=== PATIENT | male | born 1995 | race African-American/Black ===

== ENCOUNTER 2019-01-21 15:56 | Inpatient (IN) | payer BC, MEDICAID ==
[2019-01-21] VITALS (11 sets, daily range): BP systolic 97–131; BP diastolic 58–89
[~2019-01-21] VITALS: Ht 188 cm; Wt 74.4 kg
[2019-01-21] MEDS ORDERED: SODIUM CHLORIDE 0.9% 10ML VIAL ONE (16:03)
[2019-01-21] MEDS ORDERED: ETOMIDATE 2MG/ML 10ML VIAL IV ONE ×2 (16:03→16:30)
[2019-01-21] MEDS ORDERED: VECURONIUM BROMIDE 10 MG/VIAL IV ONE ×2 (16:03→16:30)
[2019-01-21] MEDS ORDERED: PROPOFOL 10MG/ML 100ML 100 ML IV ONE (16:30)
[2019-01-21 16:49] LABS: CLARITY URINE CLOUDY (CLEAR); COLOR URINE DARK YELLOW (YELLOW); KETONES URINE TRACE (NEGATIVE); LEUKOCYTE ESTERASE URINE TRACE (NEGATIVE); NITRITE URINE NEGATIVE (NEGATIVE); OCCULT BLOOD URINE NEGATIVE (NEGATIVE); PH URINE 5.5 (4.5-8.0); PROTEIN URINE TRACE (NEGATIVE); SPECIFIC GRAVITY URINE 1.032 (1.005-1.030)
[2019-01-21 16:50] LABS: CHLORIDE 110 mEq/L (98-107)
[2019-01-21 16:55] LABS: BASOPHILS % 0.6 % (0.0-2.0); EOSINOPHILS % 4.9 % (0.0-5.0); ETHANOL BLOOD 259 mg/dL; HEMATOCRIT. 38.7 % (42.0-52.0); LYMPHOCYTES % 34.4 % (20.0-50.0); MEAN CORPUSCULAR HEMOGLOBIN 29.7 pg (28.0-32.0); MEAN CORPUSCULAR VOLUME 88.8 fL (80.0-94.0); MEAN PLATELET VOLUME 8.1 fl (7.4-10.4); MONOCYTES % 7.1 % (2.0-8.0); PLATELET 232 x1000/uL (130-400); RED BLOOD CELL COUNT 4.36 mill/uL (4.7-6.1); RED CELL DISTRIBUTION WIDTH 13.7 % (11.6-14.6)
[2019-01-21 16:56] LABS: D-DIMER 0.46 mg/L FEU (<0.50); PARTIAL THROMBOPLASTIN TIME 25.4 sec (23.4-31.0); PROTHROMBIN TIME 10.7 sec (9.6-11.0)
[2019-01-21 17:11] LABS: CREATINE KINASE 1651 IU/L (39-308)
[2019-01-21 17:23] LABS: *AMPHETAMINES SCREEN URINE PRESUMTIVE POSITIVE (NEGATIVE); *BARBITURATES SCREEN URINE NEGATIVE (NEGATIVE); *BENZODIAZEPINES SCREEN URINE NEGATIVE (NEGATIVE); *COCAINE SCREEN URINE NEGATIVE (NEGATIVE); METHADONE URINE SCREEN NEGATIVE (NEGATIVE)
[2019-01-21 17:24] LABS: CANNABINOID URINE SCREEN PRESUMTIVE POSITIVE (NEGATIVE); OPIATES URINE SCREEN NEGATIVE (NEGATIVE); PHENCYCLIDINE URINE SCREEN NEGATIVE (NEGATIVE)
[2019-01-21 17:28] LABS: BG BASE EXCESS -3.6 mmol/L (-2.0-2.0); BG CARBOXYHEMOGLOBIN 1.3 % (0.5-1.5); BG DEOXYHEMOGLOBIN 0.4 % (0.0-5.0); BG FRACTION INSPIRED OXYGEN 100; BG HCO3 ACT 22.7 mmol/L (22.0-26.0); BG METHEMOGLOBIN 0.5 % (0.0-1.5); BG OXYGEN SATURATION 99.6 % (92.0-98.5); BG OXYHEMOGLOBIN 97.8 % (94.0-97.0); BG PCO2 45.9 mmHg (35.0-45.0); BG PH 7.313 (7.350-7.450); BG SAMPLE SITE RIGHT RADIAL; BG TIDAL VOLUME(mL) 500 mL; BG TOTAL HEMOGLOBIN 13.5 g/dL (12.0-18.0); BG VENT MODE VENT - A/C; BG VENT RATE 14 set
[2019-01-21] MEDS ORDERED: ONDANSETRON HCL 4MG/2ML INJ IV PRN (21:30)
[2019-01-21] MEDS ORDERED: ACETAMINOPHEN 325MG TABLET PO PRN (21:30)
[2019-01-21] MEDS: PROPOFOL 10MG/ML 100ML 100 ML IV PRN (21:31)
[2019-01-21] MEDS: FENTANYL CITRATE/PF 500 MCG in SODIUM CHLORIDE 0.9% 40 ML IV PRN (21:47)
[2019-01-21] MEDS: DEXT 5%/0.45% NACL KCL 10MEQ/L 1,000 ML IV SCH (21:59)
[2019-01-21] MEDS: ENOXAPARIN 40MG/0.4ML SYR SUBCUT SCH (21:59)
[2019-01-21] MEDS ORDERED: LEVOFLOXACIN 500MG PREMIX 100 ML IV SCH (23:00)
[2019-01-22] VITALS (49 sets, daily range): BP systolic 115–168; BP diastolic 65–118
[2019-01-22] MEDS: IPRATROPIUM/ALBUTEROL 0.5-3(2.5)MG/3ML NEB HHN SCH ×4 (01:51→20:11)
[2019-01-22] MEDS: PROPOFOL 10MG/ML 100ML 100 ML IV PRN (01:54)
[2019-01-22] MEDS: FENTANYL CITRATE/PF 500 MCG in SODIUM CHLORIDE 0.9% 40 ML IV PRN ×4 (04:28→20:05)
[2019-01-22 05:15] LABS: BASOPHILS % 0.2 % (0.0-2.0); EOSINOPHILS % 5.9 % (0.0-5.0); HEMATOCRIT. 40.1 % (42.0-52.0); HEMOGLOBIN. 13.2 g/dL (14.0-18.0); LYMPHOCYTES % 34.2 % (20.0-50.0); MEAN CORPUSCULAR HEMOGLOBIN 29.5 pg (28.0-32.0); MEAN CORPUSCULAR VOLUME 89.1 fL (80.0-94.0); MEAN PLATELET VOLUME 8.3 fl (7.4-10.4); MONOCYTES % 6.1 % (2.0-8.0); NEUTROPHILS % 53.6 % (40.0-76.0); PLATELET 208 x1000/uL (130-400); RED BLOOD CELL COUNT 4.49 mill/uL (4.7-6.1); RED CELL DISTRIBUTION WIDTH 13.9 % (11.6-14.6)
[2019-01-22 05:18] LABS: CHLORIDE 111 mEq/L (98-107)
[2019-01-22] MEDS: MIDAZOLAM HCL 100 MG in DEXT 5% WATER 80 ML IV PRN ×2 (05:54→14:34)
[2019-01-22 07:05] LABS: BG BASE EXCESS -1.6 mmol/L (-2.0-2.0); BG CARBOXYHEMOGLOBIN 0.5 % (0.5-1.5); BG HCO3 ACT 25.7 mmol/L (22.0-26.0); BG METHEMOGLOBIN 0.1 % (0.0-1.5); BG OXYGEN SATURATION 88.9 % (92.0-98.5); BG OXYHEMOGLOBIN 88.4 % (94.0-97.0); BG PCO2 54.1 mmHg (35.0-45.0); BG PH 7.294 (7.350-7.450); BG PO2 62.6 mmHg (75.0-100.0); BG SAMPLE SITE RIGHT BRACHIAL; BG TIDAL VOLUME(mL) 500 mL; BG TOTAL HEMOGLOBIN 13.8 g/dL (12.0-18.0); BG VENT MODE VENT - A/C; BG VENT RATE 16 set
[2019-01-22] MEDS: HALOPERIDOL LACTATE 5MG/ML VIAL IM PRN (07:14)
[2019-01-22 07:59] LABS: BG BASE EXCESS -1.5 mmol/L (-2.0-2.0); BG CARBOXYHEMOGLOBIN 0.2 % (0.5-1.5); BG DEOXYHEMOGLOBIN 6.5 % (0.0-5.0); BG FRACTION INSPIRED OXYGEN 40; BG HCO3 ACT 25.1 mmol/L (22.0-26.0); BG METHEMOGLOBIN 0.2 % (0.0-1.5); BG OXYGEN SATURATION 93.5 % (92.0-98.5); BG OXYHEMOGLOBIN 93.1 % (94.0-97.0); BG PCO2 50.1 mmHg (35.0-45.0); BG PH 7.318 (7.350-7.450); BG PO2 74.7 mmHg (75.0-100.0); BG SAMPLE SITE RIGHT RADIAL; BG TIDAL VOLUME(mL) 500 mL; BG TOTAL HEMOGLOBIN 13.6 g/dL (12.0-18.0); BG VENT MODE VENT - A/C; BG VENT RATE 16 set
[2019-01-22] MEDS ORDERED: IPRATROPIUM/ALBUTEROL 0.5-3(2.5)MG/3ML NEB HHN PRN (10:30)
[2019-01-22] MEDS: FAMOTIDINE 20MG/2ML VIAL IV SCH ×2 (11:01→20:59)
[2019-01-22] MEDS: QUETIAPINE FUMARATE 25MG TABLET PO SCH ×2 (11:01→20:59)
[2019-01-22] MEDS: DEXT 5%/0.45% NACL KCL 10MEQ/L 1,000 ML IV SCH (11:01)
[2019-01-22] MEDS: LORAZEPAM 2MG/ML CPJ IV PRN (11:01)
[2019-01-22] MEDS: PIPERACILLIN/TAZOBACTAM 3.375 G in DEXT 5% WATER 100 ML IV SCH ×2 (12:23→17:30)
[2019-01-22] MEDS ORDERED: FUROSEMIDE 40MG/4ML VIAL IVP NR (17:30)
[2019-01-22] MEDS: ENOXAPARIN 40MG/0.4ML SYR SUBCUT SCH (21:02)
[2019-01-23] VITALS (36 sets, daily range): BP systolic 109–161; BP diastolic 53–103
[2019-01-23] MEDS: MIDAZOLAM HCL 100 MG in DEXT 5% WATER 80 ML IV PRN ×2 (00:13→09:01)
[2019-01-23] MEDS: IPRATROPIUM/ALBUTEROL 0.5-3(2.5)MG/3ML NEB HHN SCH ×6 (00:25→20:31)
[2019-01-23] MEDS: PIPERACILLIN/TAZOBACTAM 3.375 G in DEXT 5% WATER 100 ML IV SCH ×4 (00:29→17:02)
[2019-01-23] MEDS: FENTANYL CITRATE/PF 1,000 MCG in SODIUM CHLORIDE 0.9% 80 ML IV PRN ×2 (02:02→09:29)
[2019-01-23] MEDS: DEXT 5%/0.45% NACL KCL 10MEQ/L 1,000 ML IV SCH ×2 (02:04→16:51)
[2019-01-23 05:50] LABS: BASOPHILS % 0.5 % (0.0-2.0); EOSINOPHILS % 6.5 % (0.0-5.0); HEMATOCRIT. 42.6 % (42.0-52.0); HEMOGLOBIN. 14.5 g/dL (14.0-18.0); LYMPHOCYTES % 32.6 % (20.0-50.0); MEAN CORPUSCULAR VOLUME 88.4 fL (80.0-94.0); MEAN PLATELET VOLUME 8.6 fl (7.4-10.4); MONOCYTES % 7.1 % (2.0-8.0); NEUTROPHILS % 53.3 % (40.0-76.0); PLATELET 196 x1000/uL (130-400); RED BLOOD CELL COUNT 4.82 mill/uL (4.7-6.1); RED CELL DISTRIBUTION WIDTH 13.7 % (11.6-14.6)
[2019-01-23 05:52] LABS: CHLORIDE 106 mEq/L (98-107)
[2019-01-23] MEDS: HALOPERIDOL LACTATE 5MG/ML VIAL IM PRN (07:25)
[2019-01-23 08:19] LABS: BG BASE EXCESS 0.8 mmol/L (-2.0-2.0); BG CARBOXYHEMOGLOBIN 1.1 % (0.5-1.5); BG DEOXYHEMOGLOBIN 3.8 % (0.0-5.0); BG FRACTION INSPIRED OXYGEN 40; BG METHEMOGLOBIN 0.3 % (0.0-1.5); BG OXYGEN SATURATION 96.1 % (92.0-98.5); BG OXYHEMOGLOBIN 94.8 % (94.0-97.0); BG PCO2 43.8 mmHg (35.0-45.0); BG PH 7.392 (7.350-7.450); BG PO2 80.8 mmHg (75.0-100.0); BG SAMPLE SITE RIGHT RADIAL; BG TIDAL VOLUME(mL) 500 mL; BG VENT MODE VENT - A/C; BG VENT RATE 18 set
[2019-01-23] MEDS: QUETIAPINE FUMARATE 25MG TABLET PO SCH ×2 (08:29→21:21)
[2019-01-23] MEDS: FAMOTIDINE 20MG/2ML VIAL IV SCH ×2 (08:29→21:21)
[2019-01-23 11:29] LABS: BG BASE EXCESS -0.4 mmol/L (-2.0-2.0); BG CARBOXYHEMOGLOBIN 0.2 % (0.5-1.5); BG DEOXYHEMOGLOBIN 1.5 % (0.0-5.0); BG FRACTION INSPIRED OXYGEN 40; BG HCO3 ACT 25.1 mmol/L (22.0-26.0); BG METHEMOGLOBIN 0.3 % (0.0-1.5); BG OXYGEN SATURATION 98.5 % (92.0-98.5); BG PCO2 44.3 mmHg (35.0-45.0); BG PH 7.371 (7.350-7.450); BG PO2 131.4 mmHg (75.0-100.0); BG PRESSURE SUPPORT 8; BG SAMPLE SITE RIGHT RADIAL; BG TOTAL HEMOGLOBIN 15.2 g/dL (12.0-18.0); BG VENT MODE VENT - CPAP; BG VENT RATE 11 set
[2019-01-23] MEDS: LORAZEPAM 2MG/ML CPJ IV PRN (12:39)
[2019-01-23] MEDS ORDERED: FUROSEMIDE 20MG/2ML VIAL IVP NR (13:00)
[2019-01-23] MEDS: ENOXAPARIN 40MG/0.4ML SYR SUBCUT SCH (21:21)
[2019-01-24] VITALS (16 sets, daily range): BP systolic 87–136; BP diastolic 49–77
[2019-01-24] MEDS: PIPERACILLIN/TAZOBACTAM 3.375 G in DEXT 5% WATER 100 ML IV SCH ×3 (00:13→11:15)
[2019-01-24] MEDS: IPRATROPIUM/ALBUTEROL 0.5-3(2.5)MG/3ML NEB HHN SCH ×4 (00:40→12:28)
[2019-01-24] MEDS: DEXT 5%/0.45% NACL KCL 10MEQ/L 1,000 ML IV SCH (03:50)
[2019-01-24] MEDS: FAMOTIDINE 20MG/2ML VIAL IV SCH (08:31)
[2019-01-24] MEDS: QUETIAPINE FUMARATE 25MG TABLET PO SCH (08:31)
== END 2019-01-24 16:30 | disposition left against medical advice (07) | DRG 871 ==
LOC: ER 15:56 → CVICU 18:48 → EDBD 18:48 → CMPBEDREQ 18:52 → ENRESERV 20:11
PROVIDERS: ADMIT Hospitalist; ATTEND Hospitalist
PROC: 5A1945Z Respiratory Ventilation, 24-96 Consecutive Hours (ICD-10-PCS; principal; 2019-01-21)
PROC: 0BH17EZ Insertion of Endotracheal Airway into Trachea, Via Natural or Artificial Opening (ICD-10-PCS; 2019-01-21)
PROC: 06HY33Z Insertion of Infusion Device into Lower Vein, Percutaneous Approach (ICD-10-PCS; 2019-01-21)
DX: A41.9 Sepsis, unspecified organism (principal); J96.00 Acute respiratory failure, unspecified whether with hypoxia or hypercapnia; G92 Toxic encephalopathy; J69.0 Pneumonitis due to inhalation of food and vomit; N17.9 Acute kidney failure, unspecified; M62.82 Rhabdomyolysis; T43.621A Poisoning by amphetamines, accidental (unintentional), initial encounter; E87.6 Hypokalemia; Y90.8 Blood alcohol level of 240 mg/100 ml or more; Y92.89 Other specified places as the place of occurrence of the external cause; Z78.1 Physical restraint status
CPT/HCPCS: 36415; 36600; 71045; 80048; 80305; 80307; 80320; 80329; 81003; 82140; 82375; 82550; 82805; 82962; 83605; 83880; 84443; 84478; 84484; 85379; 87070; 92610; 93005; 93970; 94002; 94003; 94640; 96374; 99291; J1630; J1650; J1940; J1956; J2060; J2250; J2543; J2704; J3010; J3490; J7060; J7620; G0480

== ENCOUNTER 2019-01-24 19:45 | Emergency (ER) | payer BC, MEDICAID ==
[~2019-01-24] VITALS: Ht 180.3 cm; Wt 70.0 kg
[2019-01-24] MEDS ORDERED: ALBUTEROL (0.083%) 2.5MG/3ML NEB HHN STA (21:43)
[2019-01-24] MEDS ORDERED: ALBUTEROL (0.5%) 2.5MG/0.5ML NEB HHN ONE (23:00)
[2019-01-25 03:15] VITALS: BP 112/61
== END 2019-01-25 03:15 | disposition home or self-care (01) ==
LOC: ER 19:45
DX: R06.02 Shortness of breath (principal); J45.909 Unspecified asthma, uncomplicated; F32.9 Major depressive disorder, single episode, unspecified; F17.200 Nicotine dependence, unspecified, uncomplicated; F14.10 Cocaine abuse, uncomplicated; F11.10 Opioid abuse, uncomplicated; F12.10 Cannabis abuse, uncomplicated; Z98.890 Other specified postprocedural states
CPT/HCPCS: 71045; 94640; 99283; J7611; Z7610

== ENCOUNTER 2019-01-28 22:45 | Emergency (ER) | payer BC, MEDICAID ==
[~2019-01-28] VITALS: Ht 180.3 cm; Wt 75.0 kg
[2019-01-28 23:03] VITALS: BP 123/85
== END 2019-01-29 02:35 | disposition left against medical advice (07) ==
LOC: ER 22:45
DX: Z53.21 Procedure and treatment not carried out due to patient leaving prior to being seen by health care provider (principal); F41.9 Anxiety disorder, unspecified; F32.9 Major depressive disorder, single episode, unspecified; I10 Essential (primary) hypertension

== ENCOUNTER 2021-02-14 19:41 | Emergency (ER) | payer BC, MEDICAID ==
[~2021-02-14] VITALS: Ht 180.3 cm; Wt 83.0 kg
[2021-02-14] MEDS ORDERED: IBUP-2029 MT (20:50)
[2021-02-14] MEDS ORDERED: IBUPROFEN 600MG TABLET PO ONE (21:00)
[2021-02-14 21:29] VITALS: BP 137/72
== END 2021-02-14 21:50 | disposition home or self-care (01) ==
LOC: ER 19:46
DX: S90.822A Blister (nonthermal), left foot, initial encounter (principal); Y93.01 Activity, walking, marching and hiking; Y93.89 Activity, other specified; Y92.9 Unspecified place or not applicable; Z59.0 Homelessness
CPT/HCPCS: 99282

== ENCOUNTER 2021-03-09 20:11 | Emergency (ER) | payer OTHER, MEDICAID ==
[~2021-03-09] VITALS: Ht 177.8 cm; Wt 81.0 kg
[~2021-03-09 20:11] MED LIST: IBUP-2029 MT
[2021-03-09 23:22] LABS: BASOPHILS % 0.3 % (0.0-2.0); EOSINOPHILS % 5.8 % (0.0-5.0); HEMATOCRIT. 40.4 % (42.0-52.0); HEMOGLOBIN. 13.5 g/dL (14.0-18.0); LYMPHOCYTES % 31.2 % (20.0-50.0); MEAN CORPUSCULAR HEMOGLOBIN 29.3 pg (28.0-32.0); MEAN CORPUSCULAR VOLUME 87.6 fL (80.0-94.0); MEAN PLATELET VOLUME 7.8 fl (7.4-10.4); MONOCYTES % 5.4 % (2.0-8.0); NEUTROPHILS % 57.3 % (40.0-76.0); PLATELET 286 x1000/uL (130-400); RED BLOOD CELL COUNT 4.62 mill/uL (4.7-6.1); RED CELL DISTRIBUTION WIDTH 14.4 % (11.6-14.6)
[2021-03-09 23:27] LABS: CHLORIDE 106 mEq/L (98-107)
[2021-03-09 23:32] LABS: ETHANOL BLOOD < 10 mg/dL
[2021-03-10 04:08] LABS: CLARITY URINE CLEAR (CLEAR); COLOR URINE YELLOW (YELLOW); KETONES URINE NEGATIVE (NEGATIVE); LEUKOCYTE ESTERASE URINE NEGATIVE (NEGATIVE); NITRITE URINE NEGATIVE (NEGATIVE); OCCULT BLOOD URINE NEGATIVE (NEGATIVE); PH URINE 6.5 (4.5-8.0); PROTEIN URINE NEGATIVE (NEGATIVE); SPECIFIC GRAVITY URINE 1.006 (1.005-1.030); UROBILINOGEN URINE 0.2 E.U./dL (0.2-1.0)
[2021-03-10] MEDS ORDERED: NICOTINE 7MG PATCH TD ONE (04:15)
[2021-03-10] MEDS ORDERED: OLANZAPINE 10 MG/VIAL IM ONE (04:15)
[2021-03-10 04:35] LABS: *AMPHETAMINES SCREEN URINE PRESUMTIVE POSITIVE (NEGATIVE); *BARBITURATES SCREEN URINE NEGATIVE (NEGATIVE); *BENZODIAZEPINES SCREEN URINE PRESUMTIVE POSITIVE (NEGATIVE)
[2021-03-10 04:36] LABS: *COCAINE SCREEN URINE NEGATIVE (NEGATIVE); CANNABINOID URINE SCREEN PRESUMTIVE POSITIVE (NEGATIVE); METHADONE URINE SCREEN NEGATIVE (NEGATIVE); OPIATES URINE SCREEN NEGATIVE (NEGATIVE); PHENCYCLIDINE URINE SCREEN PRESUMTIVE POSITIVE (NEGATIVE)
[2021-03-10 13:58] VITALS: BP 94/58
== END 2021-03-10 14:02 | disposition home or self-care (01) ==
LOC: ER 20:11
DX: R45.851 Suicidal ideations (principal); F15.10 Other stimulant abuse, uncomplicated; Z20.822 Contact with and (suspected) exposure to COVID-19
CPT/HCPCS: 36415; 80053; 80305; 80307; 80320; 80329; 81003; 85025; 96372; 99285; C9803; J3490; U0003; U0005; Z7610; G0480

== ENCOUNTER 2024-01-05 10:35 | Emergency (ER) | payer MEDICAID ==
[~2024-01-05] VITALS: Ht 182.9 cm; Wt 73.0 kg
[2024-01-05 10:38] VITALS: BP 127/70; PULSE 70; RESP 14; TEMP 98.1; O2SAT 98
[2024-01-05 11:31] LABS: BASOPHILS % 0.5 % (0.0-2.0); EOSINOPHILS % 6.3 % (0.0-5.0); HEMOGLOBIN. 12.7 g/dL (14.0-18.0); LYMPHOCYTES % 34.9 % (20.0-50.0); MEAN CORPUSCULAR HEMOGLOBIN 28.9 pg (28.0-32.0); MEAN CORPUSCULAR HGB CONC 32.6 g/dL (31.0-37.0); MEAN CORPUSCULAR VOLUME 88.6 fL (80.0-94.0); MEAN PLATELET VOLUME 7.5 fl (7.4-10.4); MONOCYTES % 7.4 % (2.0-8.0); NEUTROPHILS % 50.9 % (40.0-76.0); PLATELET 379 x1000/uL (130-400); RED CELL DISTRIBUTION WIDTH 14.1 % (11.6-14.6); WHITE BLOOD COUNT 5.7 x1000/uL (4.5-11.0)
[2024-01-05 11:39] LABS: CARBON DIOXIDE 29 mEq/L (21-32); CHLORIDE 107 mEq/L (98-107); POTASSIUM 3.8 mEq/L (3.5-5.1); SODIUM 142 mEq/L (136-145)
[2024-01-05 11:40] LABS: CALCIUM 9.1 mg/dL (8.7-10.4)
[2024-01-05 11:44] LABS: CREATININE 0.9 mg/dL (0.6-1.3)
[2024-01-05 11:45] LABS: GLUCOSE 95 mg/dL (70-105); UREA NITROGEN BLOOD 12 mg/dL (9-23)
== END 2024-01-05 18:31 | disposition left against medical advice (07) ==
LOC: ER 10:35
DX: R53.1 Weakness (principal); F32.A Depression, unspecified; Z59.00 Homelessness unspecified
CPT/HCPCS: 36415; 71045; 80048; 85025; 99284

== ENCOUNTER 2024-01-05 22:50 | Emergency (ER) | payer MEDICAID ==
[~2024-01-05] VITALS: Ht 182.9 cm; Wt 80.0 kg
[2024-01-05 22:56] VITALS: O2SAT 98
[2024-01-05 23:29] VITALS: BP 128/88; PULSE 57; RESP 16; TEMP 98.2; O2SAT 98
[2024-01-06 03:27] LABS: BASOPHILS % 0.8 % (0.0-2.0); EOSINOPHILS % 7.3 % (0.0-5.0); HEMATOCRIT. 40.3 % (42.0-52.0); HEMOGLOBIN. 13.3 g/dL (14.0-18.0); LYMPHOCYTES % 53.2 % (20.0-50.0); MEAN CORPUSCULAR HEMOGLOBIN 29.2 pg (28.0-32.0); MEAN CORPUSCULAR HGB CONC 33.1 g/dL (31.0-37.0); MEAN CORPUSCULAR VOLUME 88.2 fL (80.0-94.0); MEAN PLATELET VOLUME 7.5 fl (7.4-10.4); MONOCYTES % 5.3 % (2.0-8.0); NEUTROPHILS % 33.4 % (40.0-76.0); PLATELET 436 x1000/uL (130-400); RED BLOOD CELL COUNT 4.57 mill/uL (4.7-6.1); RED CELL DISTRIBUTION WIDTH 14.5 % (11.6-14.6); WHITE BLOOD COUNT 7.1 x1000/uL (4.5-11.0)
[2024-01-06 03:29] LABS: CHLORIDE 108 mEq/L (98-107); POTASSIUM 4.1 mEq/L (3.5-5.1); SODIUM 141 mEq/L (136-145)
[2024-01-06 03:30] LABS: CALCIUM 8.9 mg/dL (8.7-10.4); CARBON DIOXIDE 28 mEq/L (21-32)
[2024-01-06 03:35] LABS: CREATININE 0.9 mg/dL (0.6-1.3); GLUCOSE 114 mg/dL (70-105); UREA NITROGEN BLOOD 11 mg/dL (9-23)
[2024-01-06 04:47] LABS: ETHANOL BLOOD < 10 mg/dL (<10)
== END 2024-01-06 03:51 | disposition left against medical advice (07) ==
LOC: ER 22:50
DX: F32.A Depression, unspecified (principal)
CPT/HCPCS: 36415; 80048; 80320; 85025; 99283; G0480